=== PATIENT | female | born 1975 | race Caucasian/White ===

== ENCOUNTER 2016-04-03 13:09 | Outpatient (CLI) | payer OTHER ==
[~2016-04-03 13:09] MED LIST: LOESTRIN FE PO; PROTONIX40 MG PO
--- NOTE | 2016-04-03 16:42 | DIAGNOSTIC IMAGING REPORT ---
PROCEDURE: MR ABDOMEN W/WO CONTRAST INDICATION: KIDNEY MASS, F/U ABNORMAL ULTRASOUND FINDINGS TECHNIQUE: Coronal T2 and S P G R T1; axial T1, in and out of phase . 12 ml of Gadolinium administered IV and FAME axial and coronal T1 sequences were obtained. COMPARISON: Renal ultrasound 03/28/[address] abdomen 09/24/2015. FINDINGS: There is a 7 mm left renal upper pole simple cyst. There is a 11 mm 11 mm posterior left renal upper pole proteinaceous cyst without any enhancement. There is a 16 mm left renal lower pole cyst with some increased T1 signal and decreased the T2 signal without enhancement corresponding to a hemorrhagic cyst. 1.5 cm mid left renal cyst with low T1 and increased T2 signal but no enhancement, corresponding to the cyst with mural calcifications on the CT scan, without any enhancement. Normal right kidney. Two sub 5 mm hepatic cysts. Spleen, gallbladder, pancreas and adrenal glands are normal. Normal abdominal aorta. IMPRESSION: 1. 1.5 cm mid left renal cyst, with mural calcifications on CT scan, without any enhancement, consistent with a benign cyst 2. 1.6 cm left renal lower pole hemorrhagic cyst 3. Left renal upper pole simple and proteinaceous cysts.
== END 2016-04-03 23:00 ==
LOC: MRI SRH 13:09
DX: N28.1 Cyst of kidney, acquired (principal)